=== PATIENT | male | born 1975 | race Caucasian/White ===

== ENCOUNTER → 2016-08-02 | Outpatient (CLI) | payer MEDICARE, MEDICAID ==
[2016-08-02 18:26] LABS: ALBUMIN/GLOBULIN RATIO 1.25 (1.00-1.93); ALKALINE PHOSPHATASE 198 U/L (45-117); ALT/SGPT 17 U/L (12-78); ANION GAP 6 MEQ/L (8-16); AST/SGOT 10 U/L (15-37); BILIRUBIN,TOTAL 0.3 MG/DL (0.2-1.0); BLOOD UREA NITROGEN 12 MG/DL (7-18); CALCIUM LEVEL 8.6 MG/DL (8.5-10.1); CARBON DIOXIDE LEVEL 26 MEQ/L (21-32); CHLORIDE LEVEL 109 MEQ/L (98-107); CHOLESTEROL LEVEL 174 MG/DL (<200); CREATININE FOR GFR 0.92 MG/DL (0.70-1.30); GLOMERULAR FILTRATION RATE > 60.0 (>60); GLUCOSE, FASTING 96 MG/DL (70-105); POTASSIUM SERUM 4.1 MEQ/L (3.5-5.1); SODIUM LEVEL 141 MEQ/L (136-145); TOTAL PROTEIN 7.2 GM/DL (6.4-8.2); TRIGLYCERIDES LEVEL 72 MG/DL (<150)
[2016-08-02 18:57] LABS: MEAN CORPUSCULAR HEMOGLOBIN 29.1 pg (27.0-33.0); MEAN CORPUSCULAR HGB CONC 32.2 g/dl (32.0-36.5); MEAN CORPUSCULAR VOLUME 90.4 fl (80.0-96.0); RED CELL DISTRIBUTION WIDTH 12.9 % (11.5-14.5); WHITE BLOOD COUNT 7.4 K/mm3 (4.0-10.0)
== END ==
LOC: M ADAMS 08:11
PROVIDERS: ATTEND Nurse Practitioner Family
DX: E78.5 Hyperlipidemia, unspecified (principal)

== ENCOUNTER → 2016-11-15 | Outpatient (CLI) | payer MEDICARE, MEDICAID | LOC: M ADAMS 10:43 | PROVIDERS: ATTEND Nurse Practitioner Family | DX: G40.89 Other seizures (principal) ==

== ENCOUNTER → 2017-08-02 | Outpatient (CLI) | payer MEDICARE, MEDICAID ==
[2017-08-02 09:27] LABS: HEMATOCRIT 48.7 % (42.0-52.0); HEMOGLOBIN 16.5 g/dl (13.5-17.5); MEAN CORPUSCULAR HEMOGLOBIN 29.5 pg (27.0-33.0); MEAN CORPUSCULAR HGB CONC 33.9 g/dl (32.0-36.5); MEAN CORPUSCULAR VOLUME 87.1 fl (80.0-96.0); PLATELET COUNT, AUTOMATED 267 10^3/uL (150-450); RED BLOOD COUNT 5.59 10^6/uL (4.30-6.10); RED CELL DISTRIBUTION WIDTH 12.5 % (11.5-14.5); WHITE BLOOD COUNT 7.7 10^3/uL (4.0-10.0)
[2017-08-02 09:49] LABS: ALBUMIN 3.8 GM/DL (3.2-5.2); ALBUMIN/GLOBULIN RATIO 1.09 (1.00-1.93); ALKALINE PHOSPHATASE 211 U/L (45-117); ALT/SGPT 18 U/L (12-78); ANION GAP 4 MEQ/L (8-16); AST/SGOT 11 U/L (7-37); BILIRUBIN,TOTAL 0.3 MG/DL (0.2-1.0); BLOOD UREA NITROGEN 13 MG/DL (7-18); CALCIUM LEVEL 8.6 MG/DL (8.5-10.1); CARBON DIOXIDE LEVEL 28 MEQ/L (21-32); CHLORIDE LEVEL 110 MEQ/L (98-107); CHOLESTEROL LEVEL 165 MG/DL (<200); CREATININE FOR GFR 0.94 MG/DL (0.70-1.30); GLOMERULAR FILTRATION RATE > 60.0 (>60); GLUCOSE, FASTING 93 MG/DL (70-100); HDL CHOLESTEROL 44 MG/DL (>40); NON-HDL-C 121 MG/DL; PHENYTOIN (DILANTIN) 4.6 UG/ML (10.0-20.0); POTASSIUM SERUM 4.1 MEQ/L (3.5-5.1); SODIUM LEVEL 142 MEQ/L (136-145); TOTAL PROTEIN 7.3 GM/DL (6.4-8.2); TRIGLYCERIDES LEVEL 85 MG/DL (<150)
== END ==
LOC: M LAB 08:46
DX: E78.2 Mixed hyperlipidemia (principal)
CPT/HCPCS: 80185

== ENCOUNTER → 2018-01-20 | Outpatient (CLI) | payer MEDICARE, MEDICAID ==
[2018-01-20 08:50] LABS: PHENYTOIN (DILANTIN) 15.4 UG/ML (10.0-20.0)
== END ==
LOC: M LAB 07:19
DX: G40.909 Epilepsy, unspecified, not intractable, without status epilepticus (principal)
CPT/HCPCS: 80185

== ENCOUNTER → 2018-06-02 | Outpatient (REF) | payer MEDICARE, MEDICAID | LOC: M LAB REF 12:20 | PROVIDERS: ATTEND Physician Assistant Medical | DX: J02.9 Acute pharyngitis, unspecified (principal) ==

== ENCOUNTER → 2018-08-14 | Outpatient (CLI) | payer MEDICARE, MEDICAID ==
[2018-08-14 19:14] LABS: HEMATOCRIT 53.7 % (42.0-52.0); HEMOGLOBIN 17.2 g/dl (13.5-17.5); MEAN CORPUSCULAR HEMOGLOBIN 29.4 pg (27.0-33.0); MEAN CORPUSCULAR VOLUME 91.8 fl (80.0-96.0); PLATELET COUNT, AUTOMATED 294 10^3/uL (150-450); RED BLOOD COUNT 5.85 10^6/uL (4.30-6.10); WHITE BLOOD COUNT 8.2 10^3/uL (4.0-10.0)
[2018-08-14 19:16] LABS: ALBUMIN 4.2 GM/DL (3.2-5.2); ALT/SGPT 24 U/L (12-78); BILIRUBIN,TOTAL 0.4 MG/DL (0.2-1.0); BLOOD UREA NITROGEN 14 MG/DL (7-18); CALCIUM LEVEL 8.5 MG/DL (8.5-10.1); CARBON DIOXIDE LEVEL 28 MEQ/L (21-32); CHLORIDE LEVEL 106 MEQ/L (98-107); CHOLESTEROL LEVEL 201 MG/DL (<200); CHOLESTEROL RISK RATIO 4.369 (<5); CREATININE FOR GFR 0.93 MG/DL (0.70-1.30); GLOMERULAR FILTRATION RATE > 60.0 (>60); GLUCOSE, FASTING 93 MG/DL (70-100); HDL CHOLESTEROL 46 MG/DL (>40); LDL CHOLESTEROL 135 MG/DL (<100); NON-HDL-C 155 MG/DL; PHENYTOIN (DILANTIN) 13.7 UG/ML (10.0-20.0); POTASSIUM SERUM 4.2 MEQ/L (3.5-5.1); SODIUM LEVEL 141 MEQ/L (136-145); TOTAL PROTEIN 7.3 GM/DL (6.4-8.2); TRIGLYCERIDES LEVEL 102 MG/DL (<150)
== END ==
LOC: M ADAMS 08:57
PROVIDERS: ATTEND Nurse Practitioner Family
DX: E78.49 Other hyperlipidemia (principal); K59.00 Constipation, unspecified; G40.89 Other seizures

== ENCOUNTER → 2020-03-27 | Outpatient (CLI) | payer MEDICARE, MEDICAID ==
[2020-03-27 10:54] LABS: ALBUMIN 3.9 GM/DL (3.2-5.2); ALT/SGPT 18 U/L (12-78); BILIRUBIN,DIRECT < 0.1 MG/DL (0.0-0.2); BILIRUBIN,TOTAL 0.2 MG/DL (0.2-1.0); CHOLESTEROL LEVEL 204 MG/DL (<200); CPK CREATINE PHOSPHOKINASE 19 U/L (39-308); HDL CHOLESTEROL 47 MG/DL (>40); LDL CHOLESTEROL 141 MG/DL (<100); NON-HDL-C 157 MG/DL; PHENYTOIN (DILANTIN) 11.4 UG/ML (10.0-20.0); TRIGLYCERIDES LEVEL 80 MG/DL (<150)
[2020-03-27 10:55] LABS: FOLATE 5.4 NG/ML; VITAMIN B12 LEVEL 305 PG/ML
== END ==
LOC: M PLALAB 08:12
PROVIDERS: ATTEND Family Medicine
DX: G40.89 Other seizures (principal); E78.2 Mixed hyperlipidemia

== ENCOUNTER → 2020-08-13 | Outpatient (REF) | payer MEDICARE, MEDICAID ==
[2020-08-13 13:34] LABS: HEMATOCRIT 52.5 % (42.0-52.0); HEMOGLOBIN 17.4 g/dl (13.5-17.5); MEAN CORPUSCULAR HEMOGLOBIN 29.6 pg (27.0-33.0); MEAN CORPUSCULAR HGB CONC 33.1 g/dl (32.0-36.5); MEAN CORPUSCULAR VOLUME 89.3 fl (80.0-96.0); PLATELET COUNT, AUTOMATED 284 10^3/uL (150-450); RED BLOOD COUNT 5.88 10^6/uL (4.30-6.10)
[2020-08-13 14:05] LABS: ALT/SGPT 18 U/L (12-78); BILIRUBIN,TOTAL 0.3 MG/DL (0.2-1.0); BLOOD UREA NITROGEN 11 MG/DL (7-18); CALCIUM LEVEL 8.8 MG/DL (8.5-10.1); CARBON DIOXIDE LEVEL 29 MEQ/L (21-32); CHLORIDE LEVEL 107 MEQ/L (98-107); CHOLESTEROL LEVEL 185 MG/DL (<200); CHOLESTEROL RISK RATIO 4.111 (<5); CREATININE FOR GFR 0.91 MG/DL (0.70-1.30); GLOMERULAR FILTRATION RATE > 60.0 (>60); GLUCOSE, FASTING 83 MG/DL (70-100); HDL CHOLESTEROL 45 MG/DL (>40); LDL CHOLESTEROL 117 MG/DL (<100); NON-HDL-C 140 MG/DL; PHENYTOIN (DILANTIN) 14.7 UG/ML (10.0-20.0); POTASSIUM SERUM 4.3 MEQ/L (3.5-5.1); SODIUM LEVEL 139 MEQ/L (136-145); TOTAL PROTEIN 7.1 GM/DL (6.4-8.2); TRIGLYCERIDES LEVEL 116 MG/DL (<150)
== END ==
LOC: M LABDRWAD 12:15
PROVIDERS: ATTEND Registered Nurse
DX: E78.2 Mixed hyperlipidemia (principal); G40.909 Epilepsy, unspecified, not intractable, without status epilepticus; Z13.21 Encounter for screening for nutritional disorder

== ENCOUNTER → 2020-12-13 | Outpatient (CLI) | payer MEDICARE, MEDICAID ==
--- NOTE | 2020-12-13 08:38 | REP ---
INDICATION: FOREIGN BODY ANUS AND RECTUM COMPARISON: None. TECHNIQUE: Single AP view of the pelvis. FINDINGS: Single AP view of the pelvis demonstrates normal symmetric appearance to the osseous structures, joint spaces and surrounding soft tissues. There is no evidence for acute fracture or dislocation. There is somewhat rounded dense area midline soft tissue inferior to the rami which should be correlated clinically. No further obvious foreign body identified. IMPRESSION: Findings as noted above require correlation. <Electronically signed by Aroldo Kowalski > 12/13/20 [id number]
== END ==
LOC: M ADAMS 08:05
PROVIDERS: ATTEND Registered Nurse
DX: T18.5XXA Foreign body in anus and rectum, initial encounter (principal)

== ENCOUNTER → 2020-12-28 | Outpatient (CLI) | payer MEDICARE, MEDICAID ==
--- NOTE | 2020-12-28 08:52 | REP ---
INDICATION: PAIN IN RIGHT KNEE COMPARISON: None. TECHNIQUE: Five views right knee. FINDINGS: There is no evidence of acute fracture, dislocation, or intrinsic bone disease.Joint spaces are unremarkable with no significant arthritic change. IMPRESSION: Negative right knee series. <Electronically signed by Caio Giles > 12/28/20 [id number]
== END ==
LOC: M ADAMS 07:57
PROVIDERS: ATTEND Registered Nurse
DX: M25.561 Pain in right knee (principal)

== ENCOUNTER → 2021-01-21 | Outpatient (CLI) | payer MEDICARE, MEDICAID | LOC: M LABSMTC 09:34 | PROVIDERS: ATTEND Anesthesiology | DX: Z01.818 Encounter for other preprocedural examination (principal); Z11.52 Encounter for screening for COVID-19 ==

== ENCOUNTER 2021-01-25 08:10 | Day surgery (SDC) | payer MEDICARE, MEDICAID ==
[~2021-01-25] VITALS: Ht 175.3 cm; Wt 67.0 kg
[~2021-01-25 08:10] MED LIST: ATOM40CA16 PO; ATOM60CA PO; BUSP15TA47 PO; MIRA3350 PO; NS 1,000 ML IV ONE; PHEN100C PO; SIMV20TA22 PO; TOPI50TA9 PO; ZOLO100T PO; ZYRTTAB8 PO
[2021-01-25] MEDS ORDERED: LIDOCAINE 2% 100MG/5ML SDV (FOR ANES.) As Ordered ONE (09:09)
[2021-01-25] MEDS ORDERED: propofoL 200 MG/20 ML VIAL As Ordered ONE (09:09)
--- NOTE | 2021-01-25 10:22 | ROOR ---
Patient Name: Guanaco Fischer Procedure Date: 01/25/2021 7:47 AM Date of : 1975 Age: 45 Room: [facility] Gender: Male Note Status: Finalized Procedure: Colonoscopy Indications: Abnormal CT of the GI tract Providers: Caio Porter DO Referring MD: Caio Porter DO Requesting Provider: Medicines: Propofol per Anesthesia Complications: No immediate complications. Procedure: Pre-Anesthesia Assessment: - Prior to the procedure, a History and Physical was performed, and patient medications and allergies were reviewed. The patient is competent. The risks and benefits of the procedure and the sedation options and risks were discussed with the patient. All questions were answered and informed consent was obtained. Patient identification and proposed procedure were verified by the physician, the nurse, the lines tender and the medical technicians in the procedure room. Mental Status Examination: alert and oriented. Airway Examination: normal oropharyngeal airway and neck mobility. Respiratory Examination: clear to auscultation. CV Examination: normal. Prophylactic Antibiotics: The patient does not require prophylactic antibiotics. Prior Anticoagulants: The patient has taken no previous anticoagulant or antiplatelet agents. ASA Grade Assessment: II - A patient with mild systemic disease. After reviewing the risks and benefits, the patient was deemed in satisfactory condition to undergo the procedure. The anesthesia plan was to use monitored anesthesia care (MAC). Immediately prior to administration of medications, the patient was re-assessed for adequacy to receive sedatives. The heart rate, respiratory rate, oxygen saturations, blood pressure, adequacy of pulmonary ventilation, and response to care were monitored throughout the procedure. The physical status of the patient was re-assessed after the procedure. The Colonoscope was introduced through the anus and advanced to the cecum, identified by appendiceal orifice and ileocecal valve. The colonoscopy was performed without difficulty. The patient tolerated the procedure well. The quality of the bowel preparation was unsatisfactory. Findings: Non-bleeding internal hemorrhoids were found during retroflexion. The hemorrhoids were Grade II (internal hemorrhoids that prolapse but reduce spontaneously). A less than 5 mm polyp was found in the ascending colon. The polyp was hyperplastic. The polyp was removed with a jumbo cold forceps. Resection and retrieval were complete. Estimated blood loss was minimal. Multiple small-mouthed diverticula were found in the entire colon. A diffuse area of mild melanosis was found in the transverse colon, at the hepatic flexure, in the ascending colon and in the cecum. Impression: - Preparation of the colon was unsatisfactory. - Non-bleeding internal hemorrhoids. - One less than 5 mm polyp in the ascending colon, removed with a jumbo cold forceps. Resected and retrieved. - Diverticulosis in the entire examined colon. - Melanosis in the colon. Recommendation: - Patient has a contact number available for emergencies. The signs and symptoms of potential delayed complications were discussed with the patient. Return to normal activities tomorrow. Written discharge instructions were provided to the patient. - Repeat colonoscopy in 5-10 years for surveillance based on pathology results. - Return to my office PRN. Procedure Code(s): --- Professional --- 21856, Colonoscopy, flexible; with biopsy, single or multiple Diagnosis Code(s): --- Professional --- K64.1, Second degree hemorrhoids K63.5, Polyp of colon K63.89, Other specified diseases of intestine K57.30, Diverticulosis of large intestine without perforation or abscess without bleeding R93.3, Abnormal findings on diagnostic imaging of other parts of digestive tract CPT copyright 2019 [employer]. All rights reserved. The codes documented in this report are preliminary and upon neuro ophthalmologist review may be revised to meet current compliance requirements. Caio Porter DO 01/25/2021 10:21:40 AM Electronically signed by Caio Porter DO Number of Addenda: 0 Note Initiated On: 01/25/2021 7:47 AM Estimated Blood Loss: Estimated blood loss was minimal.
[2021-01-25 11:25] VITALS: BP 129/82
== END 2021-01-25 11:28 | disposition home or self-care (01) ==
LOC: M SDC 08:10
PROVIDERS: ATTEND Surgery
DX: D12.2 Benign neoplasm of ascending colon (principal); K57.30 Diverticulosis of large intestine without perforation or abscess without bleeding; K64.1 Second degree hemorrhoids; K63.89 Other specified diseases of intestine; R93.3 Abnormal findings on diagnostic imaging of other parts of digestive tract; F79 Unspecified intellectual disabilities; F42.9 Obsessive-compulsive disorder, unspecified; R56.9 Unspecified convulsions; E78.00 Pure hypercholesterolemia, unspecified; F32.9 Major depressive disorder, single episode, unspecified; F41.9 Anxiety disorder, unspecified; I51.9 Heart disease, unspecified; K59.00 Constipation, unspecified; J30.1 Allergic rhinitis due to pollen; Z79.899 Other long term (current) drug therapy

== ENCOUNTER → 2021-04-01 | Outpatient (REF) | payer MEDICARE, MEDICAID ==
[~2021-04-01] MED LIST changes: -NS 1,000 ML IV ONE
[2021-04-01 13:09] LABS: HEMATOCRIT 53.2 % (42.0-52.0); HEMOGLOBIN 17.4 g/dl (13.5-17.5); MEAN CORPUSCULAR HEMOGLOBIN 29.3 pg (27.0-33.0); MEAN CORPUSCULAR HGB CONC 32.7 g/dl (32.0-36.5); MEAN CORPUSCULAR VOLUME 89.6 fl (80.0-96.0); PLATELET COUNT, AUTOMATED 298 10^3/uL (150-450); RED BLOOD COUNT 5.94 10^6/uL (4.30-6.10); WHITE BLOOD COUNT 7.1 10^3/uL (4.0-10.0)
[2021-04-01 18:21] LABS: ALBUMIN 4.1 GM/DL (3.2-5.2); ALT/SGPT 18 U/L (12-78); BILIRUBIN,TOTAL 0.2 MG/DL (0.2-1.0); BLOOD UREA NITROGEN 12 MG/DL (7-18); CALCIUM LEVEL 9.3 MG/DL (8.5-10.1); CARBON DIOXIDE LEVEL 27 MEQ/L (21-32); CHLORIDE LEVEL 108 MEQ/L (98-107); CHOLESTEROL LEVEL 190 MG/DL (<200); CHOLESTEROL RISK RATIO 4.318 (<5); GLOMERULAR FILTRATION RATE > 60.0 (>60); GLUCOSE, FASTING 92 MG/DL (70-100); HDL CHOLESTEROL 44 MG/DL (>40); LDL CHOLESTEROL 114 MG/DL (<100); NON-HDL-C 146 MG/DL; PHENYTOIN (DILANTIN) 13.5 UG/ML (10.0-20.0); POTASSIUM SERUM 4.4 MEQ/L (3.5-5.1); SODIUM LEVEL 141 MEQ/L (136-145); TOTAL PROTEIN 7.6 GM/DL (6.4-8.2); TRIGLYCERIDES LEVEL 159 MG/DL (<150)
== END ==
LOC: M LABDRWAD 12:30
PROVIDERS: ATTEND Registered Nurse
DX: E78.2 Mixed hyperlipidemia (principal); G40.909 Epilepsy, unspecified, not intractable, without status epilepticus

== ENCOUNTER → 2021-05-11 | Outpatient (CLI) | payer MEDICARE, MEDICAID | LOC: M RAD 11:55 | PROVIDERS: ATTEND Registered Nurse | DX: K59.02 Outlet dysfunction constipation (principal) ==

== ENCOUNTER → 2021-12-06 | Outpatient (CLI) | payer MEDICARE, MEDICAID ==
[~2021-12-06] MED LIST changes: +DEBR6.5S4 AU; +FLUV50TA PO
[2021-12-06 13:17] LABS: HEMATOCRIT 49.9 % (42.0-52.0); HEMOGLOBIN 16.5 g/dl (13.5-17.5); MEAN CORPUSCULAR HEMOGLOBIN 29.6 pg (27.0-33.0); MEAN CORPUSCULAR HGB CONC 33.1 g/dl (32.0-36.5); MEAN CORPUSCULAR VOLUME 89.6 fl (80.0-96.0); PLATELET COUNT, AUTOMATED 275 10^3/uL (150-450); RED BLOOD COUNT 5.57 10^6/uL (4.30-6.10); WHITE BLOOD COUNT 6.6 10^3/uL (4.0-10.0)
[2021-12-06 13:42] LABS: HEMOGLOBIN A1c 5.2 %
[2021-12-06 14:09] LABS: ALT/SGPT 19 U/L (12-78); BILIRUBIN,TOTAL 0.3 MG/DL (0.2-1.0); BLOOD UREA NITROGEN 11 MG/DL (7-18); CARBON DIOXIDE LEVEL 27 MEQ/L (21-32); CHLORIDE LEVEL 107 MEQ/L (98-107); CHOLESTEROL LEVEL 172 MG/DL (<200); CHOLESTEROL RISK RATIO 3.659 (<5); CREATININE FOR GFR 0.92 MG/DL (0.70-1.30); FREE T3 2.6 PG/ML (2.2-4.0); FREE T4 0.54 NG/DL (0.76-1.46); GLOMERULAR FILTRATION RATE > 60.0 (>60); GLUCOSE, FASTING 76 MG/DL (70-100); HDL CHOLESTEROL 47 MG/DL (>40); LDL CHOLESTEROL 104 MG/DL (<100); NON-HDL-C 125 MG/DL; PHENYTOIN (DILANTIN) 19.1 UG/ML (10.0-20.0); SODIUM LEVEL 138 MEQ/L (136-145); TRIGLYCERIDES LEVEL 106 MG/DL (<150)
== END ==
LOC: M ADAMS 08:00
PROVIDERS: ATTEND Registered Nurse
DX: G40.909 Epilepsy, unspecified, not intractable, without status epilepticus (principal); E78.2 Mixed hyperlipidemia; Z79.899 Other long term (current) drug therapy

== ENCOUNTER → 2021-12-09 | Outpatient (CLI) | payer MEDICARE, MEDICAID | LOC: M LABSMTC 09:35 | PROVIDERS: ATTEND Anesthesiology | DX: Z01.818 Encounter for other preprocedural examination (principal); Z11.52 Encounter for screening for COVID-19 ==

== ENCOUNTER 2021-12-13 06:05 | Day surgery (SDC) | payer MEDICARE, MEDICAID ==
[~2021-12-13] VITALS: Ht 175.3 cm; Wt 65.0 kg
[2021-12-13] MEDS ORDERED: LR 1,000 ML IV SCH ×3 (06:30→08:35)
[2021-12-13] MEDS ORDERED: MIDAZOLAM INJ 2MG/2ML VIAL (J2250 PER 1MG) As Ordered ONE (07:08)
[2021-12-13] MEDS ORDERED: fentaNYL 100 MCG/2 ML INJECTION As Ordered ONE (07:09)
[2021-12-13] MEDS ORDERED: LIDOCAINE 2% 100MG/5ML SDV (FOR ANES.) As Ordered ONE (07:10)
[2021-12-13] MEDS ORDERED: ROCURONIUM BROMIDE 50 MG/5 ML VIAL As Ordered ONE (07:11)
[2021-12-13] MEDS ORDERED: dexameTHASONE 4 MG/ML 1ML VIAL (J1100 PER 1MG) As Ordered ONE (07:12)
[2021-12-13] MEDS ORDERED: LIDOCAINE W/EPINEPHRINE 1% 20ML VIAL As Ordered ONE (07:13)
[2021-12-13] MEDS ORDERED: propofoL 200 MG/20 ML VIAL As Ordered ONE (07:13)
[2021-12-13] MEDS ORDERED: ONDANSETRON 4MG 2ML VIAL As Ordered ONE (07:41)
[2021-12-13] MEDS ORDERED: SUGAMMADEX SODIUM 500 MG/5 ML VIAL (BRIDION) As Ordered ONE (07:42)
[2021-12-13] MEDS ORDERED: KETOROLAC 60MG 2ML VIAL As Ordered ONE (07:46)
[2021-12-13] MEDS ORDERED: ONDANSETRON 4MG 2ML VIAL IV PRN (08:00)
[2021-12-13] MEDS ORDERED: METOCLOPRAMIDE INJ 10MG/2ML VIAL (J2765 PER 1) IV PRN (08:00)
[2021-12-13] MEDS ORDERED: oxyCODONE 5MG TAB PO PRN (08:00)
[2021-12-13] MEDS ORDERED: fentaNYL 100 MCG/2 ML INJECTION IV PRN (08:00)
[2021-12-13 09:10] VITALS: BP 131/85
== END 2021-12-13 09:40 | disposition home or self-care (01) ==
LOC: M SDC 06:05
PROVIDERS: ATTEND Dentist Oral and Maxillofacial Surgery
DX: K02.9 Dental caries, unspecified (principal); E78.9 Disorder of lipoprotein metabolism, unspecified; F32.A Depression, unspecified; F41.9 Anxiety disorder, unspecified; F42.9 Obsessive-compulsive disorder, unspecified; F70 Mild intellectual disabilities; F63.81 Intermittent explosive disorder; G40.909 Epilepsy, unspecified, not intractable, without status epilepticus; Z79.899 Other long term (current) drug therapy; J30.2 Other seasonal allergic rhinitis
CPT/HCPCS: 88300; D7140; D9223; J1100; J1885; J2250; J2405; J3010

== ENCOUNTER → 2022-11-25 | Outpatient (REF) | payer MEDICARE, MEDICAID ==
[~2022-11-25] MED LIST changes: +TOPI-254 PO; -TOPI50TA9 PO
[2022-11-25 14:05] LABS: HEMATOCRIT 48.4 % (42.0-52.0); MEAN CORPUSCULAR HEMOGLOBIN 29.7 pg (27.0-33.0); MEAN CORPUSCULAR HGB CONC 33.1 g/dl (32.0-36.5); PLATELET COUNT, AUTOMATED 273 10^3/uL (150-450); RED BLOOD COUNT 5.38 10^6/uL (4.30-6.10); WHITE BLOOD COUNT 6.1 10^3/uL (4.0-10.0)
[2022-11-25 14:37] LABS: ALKALINE PHOSPHATASE 124 U/L (46-116); ALT/SGPT 14 U/L (7.0-40); AST/SGOT < 8 U/L (<34); BILIRUBIN,TOTAL 0.3 MG/DL (0.3-1.2); BLOOD UREA NITROGEN 14 MG/DL (9-23); CALCIUM LEVEL 8.6 MG/DL (8.5-10.1); CARBON DIOXIDE LEVEL 27 MMOL/L (20-31); CHLORIDE LEVEL 106 MMOL/L (98-107); CHOLESTEROL LEVEL 164 MG/DL (<200); CHOLESTEROL RISK RATIO 3.27 (<5); CREATININE FOR GFR 0.93 MG/DL (0.70-1.30); FREE T3 3.1 PG/ML (2.3-4.2); GLOMERULAR FILTRATION RATE > 60.0 (>60); GLUCOSE, FASTING 85 MG/DL (60-100); HDL CHOLESTEROL 50.1 MG/DL (>40); LDL CHOLESTEROL 98.9 MG/DL (<100); NON-HDL-C 113.9 MG/DL; POTASSIUM SERUM 4.3 MMOL/L (3.5-5.1); SODIUM LEVEL 140 MMOL/L (136-145); THYROID STIMULATING HORMONE 2.728 uIU/ML (0.55-4.78); TOTAL PROTEIN 6.7 G/DL (5.7-8.2); TRIGLYCERIDES LEVEL 75 MG/DL (<150)
[2022-11-25 14:38] LABS: FREE T4 0.84 NG/DL (0.89-1.76)
== END ==
LOC: M LABDRWAD 12:23
PROVIDERS: ATTEND Registered Nurse
DX: E78.2 Mixed hyperlipidemia (principal)

== ENCOUNTER → 2022-12-11 | Outpatient (CLI) | payer MEDICARE, MEDICAID | LOC: M ADAMS 08:35 | PROVIDERS: ATTEND Registered Nurse | DX: Q76.0 Spina bifida occulta (principal); T18.5XXA Foreign body in anus and rectum, initial encounter ==

== ENCOUNTER 2023-03-04 16:09 | Emergency (ER) | payer MEDICARE, MEDICAID ==
[~2023-03-04] VITALS: Ht 175.3 cm; Wt 60.9 kg
[2023-03-04 18:03] VITALS: BP 132/89; TEMP 97.8; O2SAT 100
== END 2023-03-04 18:08 | disposition home or self-care (01) ==
LOC: M ED 16:09
DX: T18.9XXA Foreign body of alimentary tract, part unspecified, initial encounter (principal); X58.XXXA Exposure to other specified factors, initial encounter; Y92.89 Other specified places as the place of occurrence of the external cause; Y93.89 Activity, other specified; Y99.8 Other external cause status; F41.9 Anxiety disorder, unspecified; F32.A Depression, unspecified; R56.9 Unspecified convulsions; F42.9 Obsessive-compulsive disorder, unspecified; F90.9 Attention-deficit hyperactivity disorder, unspecified type; Z79.899 Other long term (current) drug therapy

== ENCOUNTER → 2023-04-27 | Outpatient (REF) | payer MEDICARE, MEDICAID ==
[~2023-04-27] MED LIST changes: +TOPI-21 PO; -TOPI-254 PO
[2023-04-27 13:16] LABS: ALBUMIN 4.3 G/DL (3.2-5.2); ALKALINE PHOSPHATASE 141 U/L (46-116); ALT/SGPT 13 U/L (7.0-40); AST/SGOT < 8 U/L (<34); BILIRUBIN,TOTAL 0.4 MG/DL (0.3-1.2); BLOOD UREA NITROGEN 14 MG/DL (9-23); CARBON DIOXIDE LEVEL 27 MMOL/L (20-31); CHLORIDE LEVEL 109 MMOL/L (98-107); CREATININE FOR GFR 1.05 MG/DL (0.70-1.30); GLOMERULAR FILTRATION RATE > 60.0 (>60); GLUCOSE, FASTING 86 MG/DL (60-100); IRON (FE) 100 UG/DL (65-175); PERCENT SATURATION 40.8 % (19.7-50.0); POTASSIUM SERUM 4.6 MMOL/L (3.5-5.1); SODIUM LEVEL 141 MMOL/L (136-145); TOTAL IRON BINDING CAPACITY 245 UG/DL (250-425)
[2023-04-27 13:17] LABS: HEMATOCRIT 51.3 % (42.0-52.0); HEMOGLOBIN 17.1 g/dl (13.5-17.5); MEAN CORPUSCULAR HEMOGLOBIN 29.7 pg (27.0-33.0); MEAN CORPUSCULAR HGB CONC 33.3 g/dl (32.0-36.5); MEAN CORPUSCULAR VOLUME 89.2 fl (80.0-96.0); PLATELET COUNT, AUTOMATED 279 10^3/uL (150-450); RED BLOOD COUNT 5.75 10^6/uL (4.30-6.10); WHITE BLOOD COUNT 6.7 10^3/uL (4.0-10.0)
[2023-04-27 13:20] LABS: FREE T4 0.86 NG/DL (0.89-1.76); VITAMIN B12 LEVEL 267 PG/ML (211-911)
[2023-04-27 13:21] LABS: FOLATE 11.28 NG/ML (>5.4); TOTAL 25(OH) VITAMIN D 32.5 NG/ML (20.0-100.0)
[2023-04-27 13:22] LABS: THYROID STIMULATING HORMONE 1.633 uIU/ML (0.55-4.78)
[2023-04-27 13:24] LABS: FERRITIN 86.7 NG/ML (10.5-307.3)
[2023-04-27 13:27] LABS: FREE T3 3.2 PG/ML (2.3-4.2)
== END ==
LOC: M LABDRWAD 12:40
PROVIDERS: ATTEND Registered Nurse
DX: R53.83 Other fatigue (principal); D50.9 Iron deficiency anemia, unspecified

== ENCOUNTER 2023-06-24 12:56 | Emergency (ER) | payer MEDICARE, MEDICAID ==
[~2023-06-24] VITALS: Ht 172.7 cm; Wt 62.4 kg
[2023-06-24] MEDS ORDERED: COLA100C5 PO (16:24)
[2023-06-24] MEDS ORDERED: PROC1CRE5 PR (16:24)
[2023-06-24 16:33] VITALS: BP 118/82; TEMP 97.1; O2SAT 99
== END 2023-06-24 16:35 | disposition home or self-care (01) ==
LOC: M ED 12:56
DX: K64.4 Residual hemorrhoidal skin tags (principal); K59.00 Constipation, unspecified; K57.92 Diverticulitis of intestine, part unspecified, without perforation or abscess without bleeding; R56.9 Unspecified convulsions; F41.9 Anxiety disorder, unspecified; F32.A Depression, unspecified; J30.1 Allergic rhinitis due to pollen; Z79.899 Other long term (current) drug therapy

== ENCOUNTER → 2023-07-15 | Outpatient (REF) | payer MEDICARE, MEDICAID ==
[~2023-07-15] MED LIST changes: +COLA100C5 PO; +PROC1CRE5 PR
[2023-07-15 14:13] LABS: HEMATOCRIT 49.9 % (42.0-52.0); HEMOGLOBIN 16.5 g/dl (13.5-17.5); MEAN CORPUSCULAR HEMOGLOBIN 30.4 pg (27.0-33.0); MEAN CORPUSCULAR HGB CONC 33.1 g/dl (32.0-36.5); MEAN CORPUSCULAR VOLUME 92.1 fl (80.0-96.0); PLATELET COUNT, AUTOMATED 294 10^3/uL (150-450); RED BLOOD COUNT 5.42 10^6/uL (4.30-6.10); WHITE BLOOD COUNT 5.6 10^3/uL (4.0-10.0)
[2023-07-15 14:20] LABS: FERRITIN 85.3 NG/ML (10.5-307.3); FREE T4 0.95 NG/DL (0.89-1.76); THYROID STIMULATING HORMONE 2.291 uIU/ML (0.55-4.78); TOTAL 25(OH) VITAMIN D 25.9 NG/ML (20.0-100.0)
[2023-07-15 14:22] LABS: VITAMIN B12 LEVEL 293 PG/ML (211-911)
[2023-07-15 14:26] LABS: IRON (FE) 144 UG/DL (65-175)
[2023-07-15 14:27] LABS: PERCENT SATURATION 55.8 % (19.7-50.0); TOTAL IRON BINDING CAPACITY 258 UG/DL (250-425)
[2023-07-15 14:28] LABS: ALBUMIN 4.2 G/DL (3.2-5.2); ALKALINE PHOSPHATASE 98 U/L (46-116); ALT/SGPT 17 U/L (7.0-40); AST/SGOT < 8 U/L (<34); BILIRUBIN,TOTAL 0.3 MG/DL (0.3-1.2); BLOOD UREA NITROGEN 16 MG/DL (9-23); CALCIUM LEVEL 9.3 MG/DL (8.5-10.1); CARBON DIOXIDE LEVEL 25 MMOL/L (20-31); CHLORIDE LEVEL 108 MMOL/L (98-107); CREATININE FOR GFR 0.92 MG/DL (0.70-1.30); GLOMERULAR FILTRATION RATE > 60.0 (>60); GLUCOSE, FASTING 77 MG/DL (60-100); POTASSIUM SERUM 4.2 MMOL/L (3.5-5.1); SODIUM LEVEL 140 MMOL/L (136-145)
[2023-07-15 17:58] LABS: FREE T3 3.1 PG/ML (2.3-4.2)
[2023-07-15 17:59] LABS: FOLATE 9.94 NG/ML (>5.4)
== END ==
LOC: M LABDRWAD 13:03
PROVIDERS: ATTEND Registered Nurse
DX: R53.83 Other fatigue (principal); D50.9 Iron deficiency anemia, unspecified

== ENCOUNTER → 2023-12-08 | Outpatient (REF) | payer MEDICARE, MEDICAID ==
[2023-12-08 13:28] LABS: HEMATOCRIT 48.4 % (42.0-52.0); HEMOGLOBIN 15.9 g/dl (13.5-17.5); MEAN CORPUSCULAR HEMOGLOBIN 30.1 pg (27.0-33.0); MEAN CORPUSCULAR HGB CONC 32.9 g/dl (32.0-36.5); MEAN CORPUSCULAR VOLUME 91.7 fl (80.0-96.0); PLATELET COUNT, AUTOMATED 263 10^3/uL (150-450); RED BLOOD COUNT 5.28 10^6/uL (4.30-6.10); WHITE BLOOD COUNT 7.3 10^3/uL (4.0-10.0)
[2023-12-08 14:15] LABS: ALKALINE PHOSPHATASE 110 U/L (46-116); ALT/SGPT 16 U/L (7.0-40); AST/SGOT < 8 U/L (<34); BILIRUBIN,TOTAL 0.3 MG/DL (0.3-1.2); BLOOD UREA NITROGEN 20 MG/DL (9-23); CALCIUM LEVEL 8.9 MG/DL (8.5-10.1); CARBON DIOXIDE LEVEL 27 MMOL/L (20-31); CHLORIDE LEVEL 110 MMOL/L (98-107); CHOLESTEROL LEVEL 180 MG/DL (<200); CHOLESTEROL RISK RATIO 2.99 (<5); CREATININE FOR GFR 0.99 MG/DL (0.70-1.30); FREE T3 3.3 PG/ML (2.3-4.2); FREE T4 0.95 NG/DL (0.89-1.76); GLOMERULAR FILTRATION RATE > 60.0 (>60); GLUCOSE, FASTING 79 MG/DL (60-100); HDL CHOLESTEROL 60.2 MG/DL (>40); LDL CHOLESTEROL 110.2 MG/DL (<100); NON-HDL-C 119.8 MG/DL; POTASSIUM SERUM 4.6 MMOL/L (3.5-5.1); SODIUM LEVEL 142 MMOL/L (136-145); THYROID STIMULATING HORMONE 1.624 uIU/ML (0.55-4.78); TRIGLYCERIDES LEVEL 48 MG/DL (<150)
[2023-12-08 14:35] LABS: HEMOGLOBIN A1c 4.9 % (4.0-6.0)
== END ==
LOC: M LABDRWAD 12:46 → M LAB REF 12:46
PROVIDERS: ATTEND Registered Nurse
DX: E78.2 Mixed hyperlipidemia (principal)

== ENCOUNTER → 2024-12-05 | Outpatient (REF) | payer MEDICARE, MEDICAID ==
[2024-12-05 13:54] LABS: PLATELET COUNT, AUTOMATED 266 10^3/uL (150-450)
[2024-12-05 13:58] LABS: ALT/SGPT 15 U/L (7.0-40); AST/SGOT 12 U/L (<34); CALCIUM LEVEL 8.5 MG/DL (8.5-10.1); CARBON DIOXIDE LEVEL 28 MMOL/L (20-31); CHLORIDE LEVEL 107 MMOL/L (98-107); CHOLESTEROL LEVEL 184 MG/DL (<200); CHOLESTEROL RISK RATIO 2.94 (<5); CPK CREATINE PHOSPHOKINASE 15 U/L (46-171); CREATININE FOR GFR 1.00 MG/DL (0.70-1.30); GLOMERULAR FILTRATION RATE > 90.0 (>60); LDL CHOLESTEROL 107.1 MG/DL (<100); NON-HDL-C 121.5 MG/DL; POTASSIUM SERUM 5.0 MMOL/L (3.5-5.1); SODIUM LEVEL 144 MMOL/L (136-145); TRIGLYCERIDES LEVEL 72 MG/DL (<150)
[2024-12-05 14:00] LABS: FREE T4 0.81 NG/DL (0.89-1.76)
== END ==
LOC: M LABDRWAD 13:12
PROVIDERS: ATTEND Registered Nurse
DX: E78.2 Mixed hyperlipidemia (principal); F41.1 Generalized anxiety disorder

== ENCOUNTER → 2025-04-04 | Outpatient (CLI) | payer MEDICARE, MEDICAID ==
[2025-04-04 14:28] LABS: ALT/SGPT 19 U/L (7.0-40); AST/SGOT 13 U/L (<34); CALCIUM LEVEL 9.2 MG/DL (8.5-10.1); CARBON DIOXIDE LEVEL 27 MMOL/L (20-31); CHLORIDE LEVEL 105 MMOL/L (98-107); CHOLESTEROL LEVEL 182 MG/DL (<200); CREATININE FOR GFR 0.90 MG/DL (0.70-1.30); GLOMERULAR FILTRATION RATE > 90.0 (>60); POTASSIUM SERUM 4.8 MMOL/L (3.5-5.1); SODIUM LEVEL 138 MMOL/L (136-145)
[2025-04-04 14:29] LABS: THYROXINE (T4) 2.1 UG/DL (4.5-10.9)
[2025-04-04 14:30] LABS: FREE T4 0.97 NG/DL (0.89-1.76)
[2025-04-04 15:23] LABS: ESTIMATED AVERAGE GLUCOSE 103.0 MG/DL (60-110)
== END ==
LOC: M ADAMS 07:55
PROVIDERS: ATTEND Registered Nurse
DX: M67.462 Ganglion, left knee (principal); Z79.899 Other long term (current) drug therapy

== ENCOUNTER → 2025-04-10 | Outpatient (CLI) | payer MEDICARE, MEDICAID | LOC: M RAD 10:01 | PROVIDERS: ATTEND Registered Nurse | DX: M67.462 Ganglion, left knee (principal) ==